=== PATIENT | male | born 1990 | race Caucasian/White ===

== ENCOUNTER 2019-10-30 15:33 | Emergency (ER) | payer BC, OTHER ==
[~2019-10-30] VITALS: Ht 188 cm; Wt 90.7 kg
[2019-10-30 15:51] VITALS: BP 141/96
== END 2019-10-30 17:12 | disposition home or self-care (01) ==
LOC: ER 15:33
DX: S61.210A Laceration without foreign body of right index finger without damage to nail, initial encounter (principal); X58.XXXA Exposure to other specified factors, initial encounter; Y93.89 Activity, other specified; Y92.89 Other specified places as the place of occurrence of the external cause; Y99.8 Other external cause status
CPT/HCPCS: 73130